=== PATIENT | female | born 1995 | race African-American/Black ===

== ENCOUNTER 2020-08-20 19:37 | Observation (INO) | payer MEDICAID ==
[2020-08-20] MEDS ORDERED: OMEP20CA14 PO (23:32)
[2020-08-20] MEDS ORDERED: FERR-71 PO (23:32)
[2020-08-20] MEDS ORDERED: PNV11TAB PO (23:32)
[2020-08-20] MEDS ORDERED: CALC-1042 PO (23:32)
== END 2020-08-20 23:40 | disposition home or self-care (01) ==
LOC: 8 EST LDRP 19:37
PROVIDERS: ADMIT Obstetrics & Gynecology; ATTEND Obstetrics & Gynecology
DX: O36.8130 Decreased fetal movements, third trimester, not applicable or unspecified (principal); Z3A.38 38 weeks gestation of pregnancy
CPT/HCPCS: 59025; 76805; 76818; G0378; 99281